=== PATIENT | male | born 1955 | race Native Hawaiian/Other Pacific Islander ===

== ENCOUNTER 2016-12-13 22:40 | Emergency (ER) | payer OTHER ==
[~2016-12-13] VITALS: Ht 175.3 cm; Wt 81.6 kg
[~2016-12-13 22:40] MED LIST: CEFU500T2 PO; FLUT0.05 NAS; LORTAB 5-325 MG1 TAB PO; TUSSIN DM PO
[2016-12-13 23:35] LABS: PLATELET COUNT 237 K/uL (142-355)
[2016-12-13 23:39] LABS: POTASSIUM 3.6 mmol/L (3.6-5.2); SODIUM 143 mmol/L (136-145)
[2016-12-14 01:23] VITALS: BP 125/84; TEMP 97.6
== END 2016-12-14 01:24 | disposition home or self-care (01) ==
LOC: ED 22:40
PROVIDERS: Emergency Medicine
DX: J20.9 Acute bronchitis, unspecified (principal); R07.89 Other chest pain
CPT/HCPCS: 80053; 82550; 83880; 84484; 85027; 96374; 99284; J2930

== ENCOUNTER 2017-02-15 17:04 | Inpatient (IN) | payer OTHER ==
[~2017-02-15] VITALS: Ht 175.3 cm; Wt 80.3 kg
[2017-02-15 20:21] VITALS: BP 149/93; TEMP 98.5; Ht 175.3 cm; Wt 80.3 kg
[2017-02-16 08:00] VITALS: BP 131/77; TEMP 98
[2017-02-16 20:00] VITALS: BP 143/74; TEMP 98.5
[2017-02-17 05:34] LABS: PLATELET COUNT 247 K/uL (142-355)
[2017-02-17 06:06] LABS: POTASSIUM 3.8 mmol/L (3.6-5.2); SODIUM 137 mmol/L (136-145)
[2017-02-17 08:56] VITALS: BP 121/74; TEMP 97.8
[2017-02-17 20:00] VITALS: BP 127/74; TEMP 97.8
[2017-02-18 07:03] LABS: PLATELET COUNT 291 K/uL (142-355)
[2017-02-18 07:26] LABS: POTASSIUM 4.6 mmol/L (3.6-5.2); SODIUM 137 mmol/L (136-145)
[2017-02-19 08:00] VITALS: BP 129/71; TEMP 97.6
[2017-02-19 20:14] VITALS: BP 125/75; TEMP 98.1
[2017-02-20 08:26] VITALS: BP 111/63; TEMP 97.9
[2017-02-20 20:00] VITALS: BP 124/77; TEMP 98
[2017-02-21 09:16] VITALS: BP 131/76; TEMP 98
[2017-02-21 20:00] VITALS: BP 127/77; TEMP 98.3
[2017-02-22 08:45] VITALS: BP 132/73; TEMP 98.1
[2017-02-22 20:00] VITALS: BP 137/83; TEMP 98.6
[2017-02-23 07:58] VITALS: BP 110/71; TEMP 98
[2017-02-23 19:52] VITALS: BP 113/68; TEMP 98
[2017-02-24 08:00] VITALS: BP 127/82; TEMP 98.4
[2017-02-24 20:11] VITALS: BP 104/59; TEMP 98.3
[2017-02-25 08:03] VITALS: BP 121/68; TEMP 98.2
[2017-02-25 19:56] VITALS: BP 119/71; TEMP 98.2
[2017-02-26 08:02] VITALS: BP 134/83; TEMP 97.9
== END 2017-02-26 11:50 | disposition home or self-care (01) | DRG 556 ==
LOC: MED/SURG 17:04
PROVIDERS: ADMIT Family Medicine
DX: M62.81 Muscle weakness (generalized) (principal); J80 Acute respiratory distress syndrome; J45.901 Unspecified asthma with (acute) exacerbation; S22.41XD Multiple fractures of ribs, right side, subsequent encounter for fracture with routine healing; R06.2 Wheezing
CPT/HCPCS: 36415; 80053; 85027; 94640; 94664; 94760; J1885

== ENCOUNTER 2017-02-28 07:52 | Outpatient (CLI) | payer OTHER ==
[2017-02-28] MEDS ORDERED: SIMV40TA57 (09:30)
[2017-02-28] MEDS ORDERED: ASPIRIN/ENTERIC81 MG OR (09:30)
[2017-02-28] MEDS ORDERED: MONT10TA PO (09:31)
[2017-02-28] MEDS ORDERED: LEVO-T200 MCG PO (09:32)
[2017-02-28] MEDS ORDERED: OXYC5TAB53 PO (09:34)
[2017-02-28] MEDS ORDERED: ALLO300T23 PO (09:34)
[2017-02-28] MEDS ORDERED: PROAIR HFA IN (09:36)
== END 2017-02-28 07:56 | disposition short-term general hospital (02) ==
LOC: AMB 07:52
DX: R06.02 Shortness of breath (principal); R06.2 Wheezing
CPT/HCPCS: A0425; A0427

== ENCOUNTER 2017-02-28 08:08 | Emergency (ER) | payer OTHER ==
[~2017-02-28] VITALS: Ht 172.7 cm; Wt 83.9 kg
[2017-02-28 08:30] LABS: PLATELET COUNT 369 K/uL (142-355)
[2017-02-28 08:35] LABS: POTASSIUM 3.9 mmol/L (3.6-5.2); SODIUM 139 mmol/L (136-145)
[2017-02-28] MEDS ORDERED: SIMV40TA57 (09:30)
[2017-02-28] MEDS ORDERED: ASPIRIN/ENTERIC81 MG OR (09:30)
[2017-02-28] MEDS ORDERED: MONT10TA PO (09:31)
[2017-02-28] MEDS ORDERED: LEVO-T200 MCG PO (09:32)
[2017-02-28] MEDS ORDERED: ALLO300T23 PO (09:34)
[2017-02-28] MEDS ORDERED: OXYC5TAB53 PO (09:34)
[2017-02-28] MEDS ORDERED: PROAIR HFA IN (09:36)
[2017-02-28 11:20] VITALS: BP 155/74; TEMP 98
== END 2017-02-28 11:22 | disposition home or self-care (01) ==
LOC: ED 08:08
PROVIDERS: Specialist
DX: R06.09 Other forms of dyspnea (principal); S22.41XD Multiple fractures of ribs, right side, subsequent encounter for fracture with routine healing
CPT/HCPCS: 36415; 36600; 80048; 82805; 85027; 85379; 99284; Q9963